=== PATIENT | female | born 1990 | race Caucasian/White ===

== ENCOUNTER 2023-08-23 14:43 | Emergency (ER) | payer MEDICAID ==
[~2023-08-23] VITALS: Ht 160 cm; Wt 77.4 kg
[~2023-08-23 14:43] MED LIST: FLUT9.9S NAS
[2023-08-23 14:44] VITALS: BP 134/86; PULSE 80; O2SAT 100
[2023-08-23 14:50] VITALS: RESP 16
[2023-08-23] MEDS ORDERED: CROM40SP BOTHNARES (15:09)
[2023-08-23 15:14] VITALS: TEMP 98.6
== END 2023-08-23 15:15 | disposition home or self-care (01) ==
LOC: ER 14:44
DX: J32.9 Chronic sinusitis, unspecified (principal); Z88.0 Allergy status to penicillin; Z79.899 Other long term (current) drug therapy
CPT/HCPCS: 99283

== ENCOUNTER 2024-09-19 12:36 | Emergency (ER) | payer MEDICAID ==
[~2024-09-19] VITALS: Ht 160 cm; Wt 87.0 kg
[~2024-09-19 12:36] MED LIST changes: +CROM40SP BOTHNARES
[2024-09-19 12:44] VITALS: BP 107/64; PULSE 78; RESP 18; TEMP 98.8; O2SAT 98
[2024-09-19] MEDS ORDERED: ALBU8HFA INH (13:08)
== END 2024-09-19 13:15 | disposition home or self-care (01) ==
LOC: ER 12:38
DX: J20.9 Acute bronchitis, unspecified (principal); Z88.0 Allergy status to penicillin; Z88.1 Allergy status to other antibiotic agents
CPT/HCPCS: 99283